=== PATIENT | female | born 1970 | race Caucasian/White ===

== ENCOUNTER 2017-04-20 21:22 | Emergency (ER) | payer OTHER ==
[2017-04-20] MEDS ORDERED: Dexamethasone 4 MG TAB ONE (22:01)
== END 2017-04-20 22:30 | disposition home or self-care (01) ==
LOC: MADERS 21:22
DX: L25.9 Unspecified contact dermatitis, unspecified cause (principal); I10 Essential (primary) hypertension; J45.909 Unspecified asthma, uncomplicated
CPT/HCPCS: 99282; J8540